=== PATIENT | female | born 1960 | race Caucasian/White ===

== ENCOUNTER 2016-07-01 10:29 | Day surgery (SDC) | payer OTHER ==
[~2016-07-01] VITALS: Ht 167.6 cm; Wt 87.5 kg
[~2016-07-01 10:29] MED LIST: ACET325T PO; ASPI325T PO; ATOR40TA16 PO; CARV6.252 PO; CIPR250T52 PO; FEXO180T PO; FLUT1SPR20 PO; GABA300C5 PO; GEMF600T PO; LISI10TA3 PO; MULTTAB67 PO; NIFE60TA58 PO; OMEG600C2; RANI300T PO; VENL75TA PO
[2016-07-01 11:12] VITALS: BP 148/80; PULSE 90; RESP 16; TEMP 98
[2016-07-01] MEDS ORDERED: HYDR25TA5 PO (11:24)
[2016-07-01] MEDS ORDERED: ASPI325T33 PO (11:24)
[2016-07-01] MEDS ORDERED: NITR0.4S SL (11:24)
[2016-07-01] MEDS ORDERED: NS 1000P @30 MLS/HR (KVO) IV SCH (11:30)
[2016-07-01] MEDS ORDERED: IOHEXOL 350 MG/ML 100 ML BTL (for Cath Lab) OTHER ONE (12:53)
[2016-07-01] MEDS ORDERED: HEPARIN-NS/PF INJ 500 ML ONE (13:02)
[2016-07-01] MEDS ORDERED: HEPARIN SODIUM - IV 10,000 UNITS/10 ML VIAL ONE (13:03)
[2016-07-01] MEDS ORDERED: MIDAZOLAM HCL 2 MG/2 ML VIAL ONE (13:10)
[2016-07-01] MEDS ORDERED: MISC INFORMATION XX ONE (13:45)
--- NOTE | 2016-07-01 14:20 | MA ---
cc: LALI PASCUAL DATE: 07/01/2016 PROCEDURE PERFORMED 1. Fluoroscopy with interpretation. 2. Left heart catheterization. 3. Coronary angiography. METHOD Risks, benefits and alternatives were discussed with the patient. The patient understood and consented to the procedure. PROCEDURE The patient was brought to the catheterization lab and placed on the cardiac catheterization table. Right wrist was prepped and draped in sterile fashion. Right wrist was anesthetized with 2% lidocaine. Right radial artery was cannulated and a 6-[place] 7 cm sheath was placed without difficulty. LEFT HEART CATHETERIZATION A 6-[place] JR-5 catheter was advanced across the aortic valve without difficulty. Intraventricular hemodynamics measured at 121/2 mmHg. CORONARY ANGIOGRAPHY The left coronary circulation is selectively engaged with a 5-[place] AL-1 catheter. Right coronary circulation is selectively engaged with 6-[place] JR-5 catheter. Angiography findings are as follows: 1. Left main coronary is angiographically normal. 2. Left anterior descending coronary is angiographically normal. 3. Left circumflex is a codominant vessel giving rise to a small posterior descending branch. Left coronary is angiographically normal. The right coronary is a codominant vessel giving rise to posterior descending branch. Right coronary is angiographically normal. CONCLUSION 1. Angiographically normal coronary arteries. PLAN Although the patient has somewhat suggestive symptoms, there is no significant fixed obstructive coronary disease. May consider non-dihydropyridine calcium channel mitesh for Prinzmetal angina treatment. MD IAN [place]/RUFINA /1:56 PM /2:07 PM
[2016-07-01] MEDS ORDERED: BACITRACIN OINT 0.9 GM PKT TOP ONE (15:00)
[2016-07-01] MEDS ORDERED: CARV6.252 PO (16:03)
[2016-07-10] MEDS ORDERED: VENL75XR PO (15:01)
[2016-07-10] MEDS ORDERED: ATOR40TA16 PO (15:03)
[2016-07-24] MEDS ORDERED: HYDR25TA5 PO (15:04)
[2016-07-24] MEDS ORDERED: GEMF600T PO (15:05)
[2016-08-26] MEDS ORDERED: NIFE60TA58 PO (12:16)
[2016-09-09] MEDS ORDERED: FLUT1SPR20 (11:05)
[2016-09-09] MEDS ORDERED: FLUT1SPR20 PO (11:05)
[2016-09-18] MEDS ORDERED: PRIL20CA9 PO (09:35)
[2016-11-06] MEDS ORDERED: ESCI5TAB PO (10:04)
[2016-11-06] MEDS ORDERED: VENL37.54 PO (10:04)
[2016-11-07] MEDS ORDERED: FISH500C (15:38)
[2016-11-07] MEDS ORDERED: OMEP40CA2 PO (15:38)
[2016-11-07] MEDS ORDERED: FLUT1SPR16 (15:38)
== END 2016-07-01 17:20 | disposition home or self-care (01) ==
LOC: HDOC 10:29 → HDIC 10:30 → HDOC 17:20
PROVIDERS: ATTEND Internal Medicine
DX: R07.9 Chest pain, unspecified (principal); R94.39 Abnormal result of other cardiovascular function study; I10 Essential (primary) hypertension; E78.5 Hyperlipidemia, unspecified; Z87.891 Personal history of nicotine dependence
CPT/HCPCS: 86850; 86900; 86901; 93454; C1769; C1893; J1644; J2250; J3010; Q9967

== ENCOUNTER → 2017-11-05 | Outpatient (CLI) | payer OTHER ==
[~2017-11-05] MED LIST changes: -ACET325T PO; +AMLO10TA2 PO; -ASPI325T PO; -CIPR250T52 PO; +ESCI10TA PO; -FEXO180T PO; +FISH500C; +FLUT1SPR16; -FLUT1SPR20 PO; -LISI10TA3 PO; -MULTTAB67 PO; -NIFE60TA58 PO; +NITR0.4S SL; -OMEG600C2; +OMEP40CA2 PO; -RANI300T PO; -VENL75TA PO; +VITA100018 PO
== END ==
LOC: HRSP 09:12
PROVIDERS: ATTEND Family Medicine
DX: R06.02 Shortness of breath (principal)
CPT/HCPCS: 94060